=== PATIENT | male | born 1960 | race African-American/Black ===

== ENCOUNTER 2020-10-24 16:46 | Inpatient (IN) | payer BC ==
[~2020-10-24] VITALS: Ht 193 cm; Wt 117.5 kg
--- NOTE | ~2020-10-24 | TEE ---
[facility] [address] [place] [address] TRANSESOPHAGEAL ECHOCARDIOGRAM Name: BRIAN VASQUES JR Room #: 353-P ADM IN M.R.#: [id number] Admission: 10/24/20 Attend Phys: Jessica Mary Discharge: Date of : 60 Report #: [id number] THIS REPORT FOR: cc: FAM - Family physician unknown FAM - Family physician unknown Fazal Plaza MD [facility] ~ APPROVED REPORT Study performed: 10/25/2020 11:07:59 EXAM: Comprehensive 2D, Doppler, and color-flow Echocardiogram Patient Location: Bedside Room #: 353 Status: on-call BSA: 2.31 HR: 125 bpm BP: 99/74 mmHg Rhythm: Tachycardia Other Information Study Quality: Adequate Technically limited study due to inability to position patient/hip pain. Indications Arrhythmia Diabetes Chest Pain HLD 2D Dimensions RVDd: 32.84 mm IVSd: 11.37 (7-11mm) LVOT Diam: 23.28 (18-24mm) LVDd: 50.62 mm PWd: 11.39 (7-11mm) Ascending Ao: 33.27 (22-36mm) LVDs: 43.03 (25-40mm) Aortic Root: 32.29 mm IVC: 24.00 mm Volumes Left Atrial Volume (Systole) Single Plane 4CH: 55.48 mL Single Plane 2CH: 50.73 mL LA ESV Index: 25.00 mL/m2 Aortic Valve [facility] [address] [place] [address] TRANSESOPHAGEAL ECHOCARDIOGRAM Name: BRIAN VASQUES JR Room #: 353-P ADM IN M.R.#: [id number] Admission: 10/24/20 Attend Phys: Jessica Novak Discharge: Date of : 60 Report #: [id number] AoV Peak Akbar.: 0.78 m/s AO Peak Gr.: 2.46 mmHg LVOT Max P.71 mmHg LVOT Max V: 0.82 m/s MICHAEL Vmax: 4.46 cm2 Mitral Valve MV Decel. Time: 109.58 ms MV E Max Akbar.: 0.42 m/s IVRT: 61.51 ms Pulmonary Valve PV Peak Akbar.: 0.56 m/s PV Peak Gr.: 1.25 mmHg Tricuspid Valve RAP Estimate: 15.00 mmHg Left Ventricle The left ventricle is normal size. There is normal LV segmental wall motion. Borderline concentric left ventricular hypertrophy. Left ventricular systolic function is at the lower limits of normal LVEF 50%. Mild diastolic dysfunction Right Ventricle The right ventricle is normal size. Right ventricle is mildly hypokinetic. Atria The left atrium size is normal. The right atrium size is normal. Aortic Valve The aortic valve is normal in structure. No aortic regurgitation is present. There is no aortic valvular stenosis. Mitral Valve The mitral valve is normal in structure. Trace mitral regurgitation. No evidence of mitral valve stenosis. Tricuspid Valve The tricuspid valve is normal in structure. There is no tricuspid valve regurgitation noted. Unable to assess PA pressure. Pulmonic Valve Pulmonic valve is not well visualized. Great Vessels [facility] [address] [place] [address] TRANSESOPHAGEAL ECHOCARDIOGRAM Name: BRIAN VASQUES JR Room #: 353-P ADM IN M.R.#: [id number] Admission: 10/24/20 Attend Phys: Jessica Novak Discharge: Date of : 60 Report #: [id number] The aortic root is normal in size. IVC is mildly dilated at 2.4 cm and collapses <50% with inspiration. Pericardium There is no pericardial effusion. <Conclusion> Left ventricular systolic function is at the lower limits of normal There is normal LV segmental wall motion. LVEF 50%. Mild diastolic dysfunction The aortic valve is normal in structure. No aortic regurgitation or stenosis The mitral valve is normal in structure. Trace mitral regurgitation. Unable to assess pulmonary artery pressure. There is no pericardial effusion. By: 1200 1200 Fazal Plaza MD, FACC /INF
[2020-10-24 16:46] VITALS: BP 135/90
[~2020-10-24 16:46] MED LIST: AMOXICILLIN 50500 MG PO; ANUSOL1 EACH RC; CITRATE OF MAG296 ML PO; COLACE 100 MG100 MG PO; GLIPIZIDE 10 MG10 MG PO; GLUCOPHAGE1000 MG PO; HIGH CHOLESTEROL MED; HYDROCODONE-AP1 EAC6 PO; IBUPROFEN 600600 M1 PO; NYSTATIN15 GM TP
[2020-10-24 17:02] LABS: ABSOLUTE NEUTROPHILS 9.2 thou/uL (1.4-8.2); BASOPHILS 0.3 % (0.0-2.0); EOSINOPHILS 0.7 % (0.0-3.0); HEMATOCRIT 40.7 % (42.0-52.0); HEMOGLOBIN 13.3 gm/dL (14.0-18.0); LYMPHOCYTES 3.5 % (24.0-44.0); MCH 26.8 pg (26.0-34.0); MCHC 32.7 g/dL (28.0-37.0); MCV 81.9 fL (80.0-100.0); MONOCYTES 2.8 % (1.0-8.0); PLATELET COUNT 111 thou/uL (150-400); POLYS 92.7 % (36.0-66.0); RBC 4.97 mil/uL (4.50-6.00); RDW 14.5 % (10.5-14.5); WBC 9.9 thou/uL (4.0-11.0)
[2020-10-24 17:13] LABS: ANION GAP 15 mmol/L (7-16); BUN 24 mg/dL (7-18); CALCIUM 8.4 mg/dL (8.5-10.1); CHLORIDE 92 mmol/L (98-107); CO2 21 mmol/L (21-32); CREATININE 1.6 mg/dL (0.7-1.3); GLUCOSE 431 mg/dL (74-106); POTASSIUM 3.7 mmol/L (3.5-5.1); SODIUM 128 mmol/L (136-145)
[2020-10-24] MEDS ORDERED: TRULICITY1.5 MG/0.5 SUBQ (17:21)
[2020-10-24] MEDS ORDERED: NEURONTIN 400400 M1 PO (17:21)
[2020-10-24] MEDS ORDERED: TRAMADOL 50 MG50 MG PO (17:21)
[2020-10-24 17:27] LABS: ALBUMIN 3.2 g/dL (3.4-5.0); AMYLASE 16 U/L (25-115); DIRECT BILIRUBIN 0.3 mg/dL (<0.1-0.2); LIPASE 42 U/L (73-393); MAGNESIUM 1.7 mg/dL (1.8-2.4); SGOT 41 U/L (15-37); SGPT 33 U/L (30-65); TOTAL BILIRUBIN 0.7 mg/dL (0.2-1.0); TROPONIN-I <0.06 ng/mL (<0.06)
[2020-10-24 19:15] LABS: URINE BILIRUBIN NEGATIVE (Negative); URINE BLOOD 3+ (Negative); URINE CLARITY CLEAR; URINE COLOR YELLOW; URINE GLUCOSE-RANDOM* 3+ (Negative); URINE KETONES 1+ (Negative); URINE LEUKOCYTES-REFLEX NEGATIVE (Negative); URINE NITRITE-REFLEX NEGATIVE (Negative); URINE PROTEIN (DIPSTICK) 2+ (Negative); URINE SPECIFIC GRAVITY 1.025 (1.005-1.035); URINE UROBILINOGEN 0.2 E.U./dl (0.2-1.0)
[2020-10-24 19:25] LABS: COARSE GRANULAR CASTS 4-10 Moderate /LPF (None Seen)
[2020-10-24 19:26] LABS: SQUAMOUS 0-3 Few /LPF (0-3)
[2020-10-24 19:27] LABS: AMORPHOUS URATES Few /LPF (None Seen); BACTERIA-REFLEX 1-9 Few /HPF (None Seen); URINE RBC 0-2 Rare /HPF (0-2); URINE WBC-REFLEX 0-5 Rare /HPF (0-5)
[2020-10-24 21:48] LABS: CALCIUM 7.8 mg/dL (8.5-10.1); CREATININE 1.4 mg/dL (0.7-1.3); POTASSIUM 3.7 mmol/L (3.5-5.1)
[2020-10-24 22:25] VITALS: BP 115/71
--- NOTE | 2020-10-24 22:58 | NUR ---
REBEL CARPENTER HERE TO SEE PATIENT. SHE IS AWARE CARDIZEM X 3 DOSES HAS NOT BEEN EFFECTIVE CONTROLLING HEART RATE. ORDER RECEIVED FOR AMIODARONE DRIP. REPORT GIVEN TO CHRISTIAN CARR ON WHO IS AWARE OF NEW MED ORDER.
[2020-10-24 23:03] VITALS: BP 115/71
[2020-10-25] VITALS (9 sets, daily range): BP systolic 90–129; BP diastolic 50–82
[2020-10-25 01:23] LABS: HEMATOCRIT 37.2 % (42.0-52.0); HEMOGLOBIN 11.8 gm/dL (14.0-18.0); MCH 26.3 pg (26.0-34.0); MCHC 31.6 g/dL (28.0-37.0); MCV 83.3 fL (80.0-100.0); RBC 4.47 mil/uL (4.50-6.00); RDW 14.8 % (10.5-14.5); WBC 5.9 thou/uL (4.0-11.0)
[2020-10-25 02:19] LABS: ANION GAP 11 mmol/L (7-16); BUN 19 mg/dL (7-18); CALCIUM 7.4 mg/dL (8.5-10.1); CHLORIDE 100 mmol/L (98-107); CO2 20 mmol/L (21-32); CREATININE 1.5 mg/dL (0.7-1.3); GLUCOSE 326 mg/dL (74-106); POTASSIUM 3.6 mmol/L (3.5-5.1); SODIUM 131 mmol/L (136-145)
[2020-10-25 02:22] LABS: SERUM ASSESSMENT Clear
[2020-10-25 02:24] LABS: ALBUMIN 2.5 g/dL (3.4-5.0); SGOT 40 U/L (15-37); SGPT 30 U/L (16-63); TOTAL BILIRUBIN 0.8 mg/dL (0.2-1.0); TOTAL PROTEIN 6.2 g/dL (6.4-8.2); TROPONIN-I <0.06 ng/mL (<0.06)
[2020-10-25 02:40] LABS: CHOLESTEROL 154 mg/dL (<200); HDL CHOLESTEROL 35 mg/dL (>40); LDL CHOLESTEROL 98 mg/dL (<100); TC:HDL 4.4 Ratio (Not establshd); TRIGLYCERIDE 105 mg/dL (<150); VLDL 21 mg/dL (<40)
--- NOTE | 2020-10-25 04:18 | NUR ---
MIC FROM LAB CALLED WITH POSITIVE BLOOD CULTURES WITH GRAM+ COCCI.
--- NOTE | 2020-10-25 05:57 | NUR ---
Arrived from ER around 2324 , A fib/flutter RVR with HR in the 140's to 160's. Amiodarone gtt. started and converted to ST with PAC's around 0300. Denies any chest pain but has pain on left shoulder , right hip and right toe. Tramadol given with some relief. Denies any shortness of breath , O2 sat up to 100% in RA. Negative COVID test result called to Claire REID and Nsg Instructor Tap Dancing. Gram positive cocci also called to OPERATIVE SUPERVISOR. Pt. incontinent of bladder upon arival on the floor, provided urinal but stated he can't use it because he spills it. He uses walker at home to go to the bathroom. Agreed to have external cath in place. Bed alarm on for safety , gave verbal consent for falls contract. SCD's in place.
--- NOTE | 2020-10-25 11:17 | EKG ---
[address] [place] [address] ELECTROCARDIOGRAM REPORT Name: BRIAN VASQUES JR Room #: 353-P ADM IN M.R.#: [id number] Admission: 10/24/20 Attend Phys: Bhargav Spears MD Discharge: Date of : 60 Report #: [id number] [facility] ED Test Date: 2020-10-24 Test Time: 16:41:51 Pat Name: BRIAN VASQUES Department: Room: [facility] Gender: M Senior Procurement Manager: ADILSON : 1960 Requested By: Angel Escalante Order Number: [id number] MD: Fazal Plaza Measurements Intervals [place] Rate: 147 P: 60 TN: 154 QRS: 61 QRSD: 93 T: 77 QT: 276 QTc: 432 Interpretive Statements Sinus tachycardia Low voltage, extremity leads No previous ECG available for comparison Electronically Signed On 10-25-2020 11:17:25 VALUE ENGINEER by Fazal Plaza [email or web address] <ELECTRONICALLY SIGNED> By: Fazal Plaza MD, [facility] 10/25/20 1117 1641 1641 Fazal Plaza MD, FACC /EPI
--- NOTE | 2020-10-25 11:21 | EKG ---
[place] [address] [facility] [employer] [place] [address] ELECTROCARDIOGRAM REPORT Name: BRIAN VASQUES JR Room #: 353-P ADM IN M.R.#: [id number] Admission: 10/24/20 Attend Phys: Bhargav Spears MD Discharge: Date of : 60 Report #: [id number] [facility] ED Test Date: 2020-10-24 Test Time: 21:20:46 Pat Name: BRIAN VASQUES Department: Room: [facility] Gender: M Tassel Maker: ISIDRO : 1960 Requested By: Mykel Nickerson Order Number: [id number] MD: Fazal Plaza Measurements Intervals [place] Rate: 145 P: [place]: QRS: -31 QRSD: 87 T: 59 QT: 294 QTc: 457 Interpretive Statements Atrial flutter with predominant 2:1 AV block Left axis deviation Borderline low voltage, extremity leads Compared to ECG 10/24/2020 16:41:51 Atrial flutter has replaced sinus tachycardia Electronically Signed On 10-25-2020 11:20:56 PRODUCTION MAINTENANCE MECHANIC by Fazal Plaza [email or web address] <ELECTRONICALLY SIGNED> By: Fazla Plaza MD, [facility] 10/25/20 1120 19 19 Fazal Plaza MD, [facility] /EPI
--- NOTE | 2020-10-25 11:32 | EKG ---
[address] [place] [address] ELECTROCARDIOGRAM REPORT Name: BRIAN VASQUES JR Room #: 353-P ADM IN M.R.#: [id number] Admission: 10/24/20 Attend Phys: Bhargav Spears MD Discharge: Date of : 60 Report #: [id number] [facility] Test Date: 2020-10-25 Test Time: 07:56:29 Pat Name: BRIAN VASQUES Department: Room: 353 P Gender: M Programmer Analyst Consultant: MARIA ESTHER : 1960 Requested By: Lisa Wise Order Number: [id number] MD: Fazal Plaza Measurements Intervals [place] Rate: 122 P: 67 IA: 144 QRS: 10 QRSD: 93 T: 56 QT: 321 QTc: 458 Interpretive Statements Sinus tachycardia Atrial premature complexes Borderline low voltage, extremity leads Compared to ECG 10/24/2020 21:20:46 Atrial flutter no longer present Electronically Signed On 10-25-2020 11:31:55 ADJUSTER PIANO [employer] by Fazal Plaza [email or web address] <ELECTRONICALLY SIGNED> By: Fazal Plaza MD, [facility] 10/25/20 1131 0756 0756 Fazal Plaza MD, FAC /EPI
[2020-10-26] VITALS (11 sets, daily range): BP systolic 107–1103; BP diastolic 66–93
[2020-10-26 05:36] LABS: GLYCOHEMOGLOBIN (HGB A1C) 8.7 % (4.8-5.6)
[2020-10-26 05:55] LABS: ALBUMIN 2.2 g/dL (3.4-5.0); CALCIUM 7.8 mg/dL (8.5-10.1); CREATININE 2.3 mg/dL (0.7-1.3); PHOSPHORUS 3.1 mg/dL (2.5-4.9); POTASSIUM 3.8 mmol/L (3.5-5.1)
--- NOTE | 2020-10-26 06:16 | HC ---
[facility] [place] [address] CONSULTATION Name: BRIAN VASQUES JR Room #: 353-P ADM IN M.R.#: [id number] Admission: 10/24/20 Attend Phys: Bhagrav Spears MD Discharge: Date of : 60 Report #: [id number] THIS REPORT FOR: cc: FAM - Family physician unknown FAM - Family physician unknown Paxton Thibodeaux MD ~ DATE OF SERVICE: 10/25/2020 INFECTIOUS DISEASE CONSULTATION ATTENDING PHYSICIAN: Dr. Spears. REASON FOR EVALUATION: Streptococcal septicemia, likely right foot source. HISTORY OF SUBJECTIVE: Chart reviewed, patient examined. This is a 60-year-old gentleman with a fairly extensive medical history, has diabetes mellitus type 2 complicated by peripheral neuropathy, presented with chest pain. He describes a left-sided kind of involving the upper portion of the shoulder, perhaps the neck as well, rated quite high in terms of intensity. Overall, that has resolved, has a more focal area that is reproducible with palpation. At the time of presentation, he was febrile to as high as 103 last p.m. At the time of admission, blood cultures were collected, now with growth of gram-positive cocci, consistent with strep in 2/2. Additional evaluation noted chest x-ray that was unremarkable. Did have marked inflammatory marker elevation including CRP of 316. Sed rate of 98, also had a procalcitonin of 71.2. Lactic acid 3.0. Did complain of right great toe pain involving the first metatarsophalangeal site as well. He is generally lucid. He denies significant oral related pain or discomfort. He has dentures. No GI related complaints either. He is empirically started on therapy with vancomycin and Zosyn. ALLERGIES: None known. MEDICATIONS: As noted above include enoxaparin, famotidine, aspirin, vancomycin, amiodarone, Zosyn, tramadol, p.r.n. analgesics and antiemetics. PAST MEDICAL HISTORY: Diabetes mellitus complicated by peripheral neuropathy, hyperlipidemia, previous hip surgery. SOCIAL HISTORY: Nonsmoker, no ethanol. FAMILY HISTORY: Noncontributory. REVIEW OF SYSTEMS: Otherwise, unremarkable. PHYSICAL EXAMINATION: [facility] [address] [place] [address] CONSULTATION Name: BRIAN VASQUES JR Room #: 353-P [facility] IN .R.#: [id number] Admission: 10/24/20 Attend Phys: Bhargav Spears MD Discharge: Date of : 60 Report #: [id number] GENERAL: He appears somewhat chronically ill and undernourished. He is pleasant, in [id number]-ch-[id number] distress. VITAL SIGNS: Temperature 98.7, pulse is still 116, had been up in the 140s to 150s, respirations 16, blood pressure is 99/74. SKIN: Warm, dry, no rashes. HEENT: Otherwise, unremarkable. NECK: Supple. Normocephalic. Extraocular muscles intact. LUNGS: Diminished breath sounds. I do not appreciate any crackles or wheezes. HEART: Regular without evidence of a murmur. ABDOMEN: Soft, nontender. EXTREMITIES: Distal right lower extremity has a hemorrhagic type bullous lesion over the medial aspect of the first MTP is quite exclusively tender. GENITOURINARY AND RECTAL: Deferred. LABORATORY DATA: Lactic acid now down to 2.9, glucose of 271. Blood cultures 2 out 2 with growth of streptococcal species. Sodium 131, potassium 3.6, chloride 100, bicarbonate is 20, anion gap of 11, BUN and creatinine 19 and 1.5, glucose of 326, AST of 40, ALT of 30. Albumin 2.5, total protein 6.2. Coronavirus testing x2 was negative thus far. Sed rate of 98. ASSESSMENT: Streptococcal septicemia, suspect source is the right great toe. I think this is significant. No plain films were unrevealing, I think surgery should evaluate and possible debridement. We will adjust antimicrobial therapy including Unasyn and clindamycin. We have to monitor expectantly, certainly at risk for additional deterioration clinically and further complications. <ELECTRONICALLY SIGNED> By: Paxton Thibodeaux MD 10/26/20 0616 0909 0935 Paxton Thibodeaux MD /nt
--- NOTE | 2020-10-26 07:30 | NUR ---
Afib RVR with HR in the 140's to 170's at shift change.Amiodarone gtt. and cardizem gtt. infusing. Pt. given amiodarone bolus x2 doses and converted to ST after the 2nd amiodarone bolus. He maintained ST all night long with HR in the upper 100's to 110's.Tylenol given for elevated temp.Complete bed bath given.Tolerating room air well with O2 sat in the upper 90's to 100%. No respiratory distress. Pt. assisted to reposition for comfort.Incontinent of large soft bm. External cath in place. Bed alarm on.
[2020-10-26 08:56] LABS: HEMATOCRIT 34.8 % (42.0-52.0); HEMOGLOBIN 11.3 gm/dL (14.0-18.0); MCHC 32.6 g/dL (28.0-37.0); MCV 82.8 fL (80.0-100.0); RBC 4.21 mil/uL (4.50-6.00); RDW 14.7 % (10.5-14.5); WBC 10.4 thou/uL (4.0-11.0)
[2020-10-26 11:19] LABS: ABSOLUTE NEUTROPHILS 9.6 thou/uL (1.4-8.2)
[2020-10-26 11:20] LABS: PLATELET COUNT 93 thou/uL (150-400)
[2020-10-26 11:21] LABS: ANISOCYTOSIS 1+
--- NOTE | 2020-10-26 20:03 | NUR ---
CONT ON CARDIZEM AND AMIO DRIPS. HR HAS RESTED IN 100-110 RANGE THROUGH THE DAY. HE DID HAVE A FEVER AND ALSO PAIN. PRN MEDS ADMINISTERED ACCORDINGLY. FAMILY UPDATED.
[2020-10-27] VITALS (8 sets, daily range): BP systolic 128–159; BP diastolic 77–92
--- NOTE | 2020-10-27 00:22 | NUR ---
PT ALERT AND ORIENTED X4. T 1O2.1 EARLIER AT CHANGE OF SHIFT. HR 133. AFIB TITRATED CARDIZEM GTT TO 20 THEN DOWN TO 18. HR 103 -115 . BP WNL> 100. AMIODARONE GTT ON ORDERED. TYLENOL GIVEN PER DAY SHIFT 17:40. PT IS AFEBRILE PRESENTLY. SATS 95-98% ON RA. SWELLING TO ANKLES IS GONE. EDEMA TO RIGHT FOOT IS LESS THAN 1+. NO C/O PAIN. ATTEMPTED TO CLARIFY SECOND CT OF PELVIS ORDERED WITH ORTHOPEDIC PLATING AND POINT ASSEMBLY SUPERVISOR. ANSWERING SERVICE DID NOT ANSWER CALL AFTER SEVERAL MINUTES OF WAITING ON LINE. NOTIFIED Claire CARPENTER NP . WILL CLARIFY IN AM WHETHER A SECOND CT OF RIGHT HIP IS NEEDED TO VISUALIZE TIP OF HIP REPLACEMENT PART OR IF MRI IS ADEQUATE TOMMORROW PER REQUEST OF RADIOLOGY. WILL CONTINUE TO MONITOR PT FOR CHANGES.
--- NOTE | 2020-10-27 11:35 | NUR ---
0930 MRI CALLED BACK AND STATED THEY SPOKE TO DR. SCHWARZ AND ORTHO DOCTOR AND THEY CARE OKAY WIH PT HAVING MRI TOMORROW.CALLED MRI BACK AND UPDATED THEM ABOUT CARDIOLOGY BEING OKAY WITH PT COMING OF DRIP TO GO DOWN FOR MRI. CALLED MRI BACK, THEY STATED THEY ALL BOKKED THE WHOLE DAY AND WILL LET ME KNOW IF THERE IS ANY OPENING. PT HAS BEEN SCHEDULED FOR TOMORROW. PT UPDATED ABOUT IT. PT CALLED AND UODATED ABOUT PT CARE
[2020-10-27 11:40] LABS: HEMATOCRIT 35.8 % (42.0-52.0); HEMOGLOBIN 11.6 gm/dL (14.0-18.0); MCH 26.4 pg (26.0-34.0); MCHC 32.3 g/dL (28.0-37.0); MCV 81.7 fL (80.0-100.0); PLATELET COUNT 106 thou/uL (150-400); RBC 4.38 mil/uL (4.50-6.00); RDW 15.3 % (10.5-14.5); WBC 10.2 thou/uL (4.0-11.0)
[2020-10-27 12:03] LABS: CALCIUM 8.2 mg/dL (8.5-10.1); CREATININE 2.3 mg/dL (0.7-1.3); POTASSIUM 3.7 mmol/L (3.5-5.1); TOTAL BILIRUBIN 0.5 mg/dL (0.2-1.0); TOTAL PROTEIN 6.3 g/dL (6.4-8.2)
[2020-10-27 13:11] LABS: ABSOLUTE NEUTROPHILS 8.9 thou/uL (1.4-8.2); TARGET CELLS FEW
[2020-10-27 13:12] LABS: OVALOCYTES OCCASIONAL; POLYCHROMASIA 1+; SCHISTOCYTES OCCASIONAL
--- NOTE | 2020-10-27 13:30 | NUR ---
ASSESSMENT: CM REVIEWED CHART. PATIENT WAS ADMITTED DUE TO CHEST PAIN AND RIGHT FOOT PAIN. PT WAS FOUND TO BE IN AFIB/FLUTTER AND NOW ON AMIODARONE GTT. PT WAS ALSO RUNNING FEVERS. ID IS CONSULTED AND PT IS ON IV ANBX. CM ATTEMPTED TO REACH PATIENT IN ROOM BUT NO ANSWER. CM REACHED OUT TO PATIENTS . SHE REPORTS THEY LIVE IN A SENIOR COMMUNITY APT AND THEY LIVE ON THE FIRST LEVEL AND HAVE NO STEPS. REPORTS THAT PATIENT HAS A ROLLATER WALKER AT HOME TO ASSIST WITH AMBULATION. REPORTS THAT PATIENT HAS HAD HH IN THE PAST AFTER A SURGERY ABOUT A YEAR OR SO AGO BUT UNSURE WHAT AGENCY. SHE REPORTS PATIENT HAS NOT BEEN TO A SNF. PHYSICAL THERAPY IS ORDERED FOR PATIENT AND CURRENTLY THEY HAVE BEEN UNABLE TO WORK WITH HIM YET. MRI OF PATIENTS FOOT IS ORDERED. CM WILL CONTINUE TO FOLLOW TO ASSIST NEEDED.
--- NOTE | 2020-10-27 14:58 | EKG ---
[place] [address] [facility] [employer] [place] [address] ELECTROCARDIOGRAM REPORT Name: LAYOBRIAN ENRIQUEZ JR Room #: 353-P ADM IN M.R.#: [id number] Admission: 10/24/20 Attend Phys: Jessica Mary Discharge: Date of : 60 Report #: [id number] [facility] Test Date: 2020-10-27 Test Time: 07:54:42 Pat Name: BRIAN VASQUES Department: Room: 353 P Gender: M Roll Changer: DOUGLAS : 1960 Requested By: Fazal Plaza Order Number: [id number] MD: Rajesh Tripp Measurements Intervals [place] Rate: 99 P: 49 OR: 169 QRS: 4 QRSD: 110 T: 40 QT: 384 QTc: 493 Interpretive Statements Sinus rhythm Low voltage, extremity leads Abnormal R-wave progression, early transition Minimal ST elevation, anterior leads Borderline prolonged QT interval Compared to ECG 10/25/2020 07:56:29 Electronically Signed On 10-27-2020 14:58:14 CDT by Rajesh Tripp [email or web address] <ELECTRONICALLY SIGNED> By: Rajesh Tripp MD 10/27/20 1458 0754 0754 Rajesh Tripp MD /EPI
--- NOTE | 2020-10-27 23:21 | NUR ---
PT ALERT AND ORIENTED X4. VSS. T 100.8. PERIODS OF ANXIETY AND IRRITABILITY NOTED. ATTEMPTING TO GET PT STRONGER PAIN MEDS. AWAITING RESPONSE FROM TELEVISION ANCHOR. HE REFUSED TRAMADOL. HE SAYS IT DOESNT WORK. IVFS INFUSING. AMIODARONE ON. ABX GIVEN ORDERED. PEDAL PULSES ARE FAINT. PULSE CLEARLY AUDIBLE WITH DOPPLER TO IZABELLA PEDAL PULSES. EDEMA NOTED 1+ TO RIGHT FOOT/ ANKLE AREA. CALL LIGHT IN REACH. BED ALRM ON.
--- NOTE | 2020-10-28 00:56 | NUR ---
SPOKE WITH NURSE PRACTIONER AND INFORMED HER PT IS C/O PAIN TO LEFT SHOULDER X3-4 DAYS WHICH HE STATES IS NOT RELIEVED BY PILLS. TORADOL X1 GIVEN IV. REFAXED MRI ANCA HU. PT DOES HAVE HX RENAL INSUFFICIENCY . ADDED THIS TO ANCA. STARTED PT ON IV NS AT 100/HR ORDERED. HR 103. TEMP DOWN TO 99.2 AFTER TYLENOL.
[2020-10-28 03:00] VITALS: BP 145/89
[2020-10-28 05:41] LABS: HEMATOCRIT 35.9 % (42.0-52.0); HEMOGLOBIN 11.5 gm/dL (14.0-18.0); MCH 26.3 pg (26.0-34.0); MCHC 32.1 g/dL (28.0-37.0); MCV 81.8 fL (80.0-100.0); RBC 4.39 mil/uL (4.50-6.00); RDW 15.1 % (10.5-14.5); WBC 9.8 thou/uL (4.0-11.0)
[2020-10-28 05:51] LABS: CALCIUM 7.9 mg/dL (8.5-10.1); CREATININE 2.1 mg/dL (0.7-1.3); MAGNESIUM 2.4 mg/dL (1.8-2.4); POTASSIUM 3.8 mmol/L (3.5-5.1)
--- NOTE | 2020-10-28 06:03 | NUR ---
PT PRESENTLY RESTING QUIETLY. NO C/O PAIN . IV ABX HUN ORDERED. REFUSED JASON CARE. HE WOULD NOT LET ME TURN THS AM. TEMP DOWN TO 98. HR 98. SATS 94-98%. AMIODARONE DRIP INFUSING AND NS AT 100 ML/HR.
--- NOTE | 2020-10-28 07:34 | NUR ---
LATE ENTRY FOR 10/27/20 APPROXIMATELY 07:15 AM. I NOTIFED ORTHOPEDIC DR DIMENSION QUARRY SUPERVISOR THAT ORTHO CHARLEEN ORDERED CT OF PELVIS AND RADIOLOGY HAD ASKED ME ON LANOLIN PLANT OPERATOR TO HAVE SECOND CT OF PELVIS TO BE CHANGED TO RIGHT HIP CT IN ORDER TO VISUALIZE LOWER PART OF THR HARDWARE. ORTHO DIMENSION QUARRY SUPERVISOR STATED SHE WOULD TELL CHARLEEN DOTY TO REORDER CT OF RIGHT HIP INSTEAD OF CT OF PELVIS IF NEEDED OTHERWISE THERE IS A CT OF ABD AND PELVIS COMPLETED WHICH DID SHOW PART OF RIGHT HIP. INFORMED DAY SHIFT NS THAT SECOND CT WAS NOT CLARIFIED BY PA AND WAS STILL UNDONE.
[2020-10-28 07:49] VITALS: BP 143/87
--- NOTE | 2020-10-28 07:49 | NUR ---
CLARIFICATION FOR LATE ENTRY NOTE ABOVE PA WAS RAMANDEEP PARKER NOT SOREN.
[2020-10-28 11:07] VITALS: BP 147/91
--- NOTE | 2020-10-28 14:46 | 2DMMODE ---
[facility] [place] [address] 2 D/M-MODE ECHOCARDIOGRAM Name: BRIAN VASQUES JR Room #: 353-P ADM IN M.R.#: [id number] Admission: 10/24/20 Attend Phys: Jessica Mary Discharge: Date of : 60 Report #: [id number] THIS REPORT FOR: cc: FAM - Family physician unknown FAM - Family physician unknown Fazal Plaza MD [facility] Rebel Wise ~ Sex/Age : M/60Y Height/Weight : 188.0cm/104.3kg Patient Name : BRIAN VASQUES Study Date : 2020-10-25 BSA : 2.31? Requesting Name : ECHO STANDARD W/O CONTRAST Date of : 1960 Request Doctor : REBEL WISE Department : CARD --< Approved Report > Study performed: 10/25/2020 11:07:59 EXAM: Comprehensive 2D, Doppler, and color-flow Echocardiogram Patient Location: Bedside Room #: 353 Status: on-call BSA: 2.31 HR: 125 bpm BP: 99/74 mmHg Rhythm: Tachycardia Other Information Study Quality: Adequate Technically limited study due to inability to position patient/hip pain. Indications Arrhythmia Diabetes Chest Pain HLD 2D Dimensions RVDd: 32.84 mm IVSd: 11.37 (7~11mm) LVOT Diam: 23.28 (18~24mm) LVDd: 50.62 mm PWd: 11.39 (7~11mm) Ascending Ao: 33.27 (22~36mm) LVDs: 43.03 (25~40mm) [facility] [address] [place] [address] 2 D/M-MODE ECHOCARDIOGRAM Name: BRIAN VASQUES JR Room #: 353-P [facility] IN ..#: [id number] Admission: 10/24/20 Attend Phys: Jessica Harris Oct Discharge: Date of : 60 Report #: [id number] Aortic Root: 32.29 mm IVC: 24.00 mm Volumes Left Atrial Volume (Systole) Single Plane 4CH: 55.48 mL Single Plane 2CH: 50.73 mL LA ESV Index: 25.00 mL/m2 Aortic Valve AoV Peak Akbar.: 0.78 m/s AO Peak Gr.: 2.46 mmHg LVOT Max P.71 mmHg LVOT Max V: 0.82 m/s MICHAEL Vmax: 4.46 cm2 Mitral Valve MV Decel. Time: 109.58 ms MV E Max Akbar.: 0.42 m/s IVRT: 61.51 ms Pulmonary Valve PV Peak Akbar.: 0.56 m/s PV Peak Gr.: 1.25 mmHg Tricuspid Valve RAP Estimate: 15.00 mmHg Left Ventricle The left ventricle is normal size. There is normal LV segmental wall motion. Borderline concentric left ventricular hypertrophy. Left ventricular systolic function is at the lower limits of normal LVEF 50%. Mild diastolic dysfunction Right Ventricle The right ventricle is normal size. Right ventricle is mildly hypokinetic. Atria The left atrium size is normal. The right atrium size is normal. Aortic Valve The aortic valve is normal in structure. No aortic regurgitation is present. There is no aortic valvular stenosis. Mitral Valve The mitral valve is normal in structure. Trace mitral regurgitation. No evidence of mitral valve stenosis. Tricuspid Valve The tricuspid valve is normal in structure. There is no tricuspid valve regurgitation noted. Unable to assess PA pressure. [facility] [address] [place] [address] 2 D/M-MODE ECHOCARDIOGRAM Name: BRIAN VASQUES JR Room #: 353-P ADM IN M.R.#: [id number] Admission: 10/24/20 Attend Phys: Jessica Novak Discharge: Date of : 60 Report #: [id number] Pulmonic Valve Pulmonic valve is not well visualized. Great Vessels The aortic root is normal in size. IVC is mildly dilated at 2.4 cm and collapses <50% with inspiration. Pericardium There is no pericardial effusion. <Conclusion> Left ventricular systolic function is at the lower limits of normal There is normal LV segmental wall motion. LVEF 50%. Mild diastolic dysfunction The aortic valve is normal in structure. No aortic regurgitation or stenosis The mitral valve is normal in structure. Trace mitral regurgitation. Unable to assess pulmonary artery pressure. There is no pericardial effusion. Electronically Approved : 10/28/2020 14:45:00 By: 1200 1445 Fazal Plaza MD, FACC /
--- NOTE | 2020-10-28 15:18 | NUR ---
SW reviewed chart and spoke with nursing and attending physician. Pt is on IV abx. Pt had MRI of his foot this morning. [facility] consulted and has accepted pt from a clinical standpoint. Will need insurance authorization. SW updated attending physician. LANE is following to assist as needed with discharge planning.
[2020-10-28 16:11] VITALS: BP 151/87
[2020-10-28 20:11] VITALS: BP 183/111
[2020-10-28 20:48] VITALS: BP 152/85
[2020-10-29 04:05] VITALS: BP 150/95
--- NOTE | 2020-10-29 04:32 | NUR ---
Pt. given ultram for left shoulder pain with some relief. He requested bengay stating it help more than the pill. Dr. Mcgee notified and order received. He finally went to sleep after that. Repositioned for comfort. Tylenol given to help decrease temp. Elevated BP at HS per COLLECTION SUPERVISOR 183/111 , rechecked and got 152/85. Temp in room also set at 85 degrees with door closed at HS and temp recorded 101.6. Decrease temp in room and door opened. Rechecked temp and got 99.5. This am temp of 100.5 , tylenol given. ST per tele .Bed alarm on. External cath in place. Making progress towards care plan goal.
[2020-10-29 05:49] LABS: HEMATOCRIT 35.6 % (42.0-52.0); HEMOGLOBIN 11.6 gm/dL (14.0-18.0); MCH 26.2 pg (26.0-34.0); MCHC 32.5 g/dL (28.0-37.0); MCV 80.6 fL (80.0-100.0); RBC 4.41 mil/uL (4.50-6.00); RDW 14.9 % (10.5-14.5); WBC 12.1 thou/uL (4.0-11.0)
[2020-10-29 06:41] LABS: CALCIUM 7.9 mg/dL (8.5-10.1); CREATININE 1.6 mg/dL (0.7-1.3); POTASSIUM 3.6 mmol/L (3.5-5.1)
[2020-10-29 12:16] VITALS: BP 144/93
--- NOTE | 2020-10-29 14:55 | NUR ---
LANE reviewed chart and spoke with nursing and attending physician. Pt is progressing towards goals for discharge. Discharge home is anticipated soon. [facility] has accepted pt. Pt does not want to go to [facility]. Pt wants to go home. SW met with pt at bedside to discuss discharge plan. Pt is agreeable with HH referral. Options provided for HH. No preference voiced. LANE faxed referral to Patricia for review. LANE is following to assist as needed with discharge planning.
[2020-10-29 17:08] VITALS: BP 164/92
--- NOTE | 2020-10-29 18:26 | NUR ---
CARE TAKEN THIS AM, PT DENIES ANY NAUSEA AND VOMITTING. PT STATED HE IS READY TO GO. ANTICIPATING FOR D/C SOON. PT IN THE ROOM VISITING.
[2020-10-29 19:17] VITALS: BP 168/103
[2020-10-29 20:15] VITALS: BP 181/91
[2020-10-29 20:22] LABS: URINE BILIRUBIN NEGATIVE (Negative); URINE BLOOD 2+ (Negative); URINE CLARITY CLEAR; URINE COLOR YELLOW; URINE GLUCOSE-RANDOM* 1+ (Negative); URINE KETONES TRACE (Negative); URINE LEUKOCYTES-REFLEX NEGATIVE (Negative); URINE NITRITE-REFLEX NEGATIVE (Negative); URINE PROTEIN (DIPSTICK) 1+ (Negative); URINE SPECIFIC GRAVITY 1.025 (1.005-1.035)
[2020-10-29 20:32] LABS: MUCUS 4-6 Moderate strn/LPF (None Seen); SQUAMOUS 0-3 Few /LPF (0-3); URINE WBC-REFLEX 6-15 Few /HPF (0-5)
[2020-10-29 20:33] LABS: URINE RBC 3-10 Few /HPF (0-2)
[2020-10-29 20:34] LABS: BACTERIA-REFLEX 1-9 Few /HPF (None Seen); COARSE GRANULAR CASTS 0-3 Few /LPF (None Seen); CRYSTALS None Seen /LPF (None Seen)
--- NOTE | 2020-10-30 03:24 | NUR ---
Slept better last night. Assisted to reposition for comfort. Bengay to left shoulder per pt. request with good relief. SR-ST (low 100's) per tele. Tylenol given for pain and low grade temp. External cah in place. Making progress towards care plan goals.
[2020-10-30 04:28] VITALS: BP 178/105
[2020-10-30 04:50] VITALS: BP 170/100
[2020-10-30 05:55] LABS: HEMATOCRIT 33.4 % (42.0-52.0); MCH 26.5 pg (26.0-34.0); MCHC 32.8 g/dL (28.0-37.0); MCV 80.7 fL (80.0-100.0); RBC 4.14 mil/uL (4.50-6.00); RDW 15.1 % (10.5-14.5); WBC 14.7 thou/uL (4.0-11.0)
[2020-10-30 06:06] LABS: CALCIUM 7.7 mg/dL (8.5-10.1); CREATININE 1.5 mg/dL (0.7-1.3); MAGNESIUM 1.9 mg/dL (1.8-2.4); POTASSIUM 3.4 mmol/L (3.5-5.1)
--- NOTE | 2020-10-30 06:10 | NUR ---
Elevated BP reported to Dr. Mcgee. BP meds given jimmy per order.
[2020-10-30 08:33] VITALS: BP 162/98
[2020-10-30] MEDS ORDERED: CARDIZEM CD240 M1 PO (09:11)
[2020-10-30] MEDS ORDERED: BENICAR40 MG PO (09:11)
[2020-10-30] MEDS ORDERED: BAYER CHEWABLE81 MG PO (09:11)
[2020-10-30] MEDS ORDERED: PACERONE 200 M200 M1 PO (09:15)
[2020-10-30 12:39] VITALS: BP 152/85
--- NOTE | 2020-10-30 13:55 | NUR ---
CARE ASSUMED AT 0700, PT ALERT AND ORIENTED X4, DENIES ANY NAUSEA, VOMITTING. CONTINUES TO BE ON ROOM AIR, NO SIGNS OF DISTRESS NOTED. EXTERNAL CATHETER IN PLACE. PT CONTINUES TO HAVE FEVER, DR. JACOBS MADE AWARE. PT A LITTLE FRUSTRATED ABOUT NOT BEING ABLE TO GO HOME TODAY BUT UNDERSTANDS THE REASON. DENIES ANY NEEDS AT THE MOMENT. FALL PRECAUTIONS IN PLACE. WILL CONTINUE TO MONITOR.
[2020-10-30 15:31] VITALS: BP 167/91
--- NOTE | 2020-10-30 15:36 | NUR ---
SW reviewed chart and spoke with nursing and attending physician. Pt remains febrile and on IV abx[facility]. LANE met with pt at bedside to discuss discharge plan. Pt states that he is hoping to discharge home tomorrow. 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 Pt is an elementary calculus teacher. Pt tearful when stating that the students started back to school on Tuesday, 10/27 and this is the first day of school in 37 years that he has missed. Plan is for pt to discharge home when medically stable. Pt's PCP is Dr. Roderick Bravo. SW is following to assist as needed with discharge planning.
[2020-10-30 20:30] VITALS: BP 157/94
[2020-10-31 03:53] VITALS: BP 171/102
[2020-10-31 05:34] LABS: HEMATOCRIT 32.3 % (42.0-52.0); HEMOGLOBIN 10.4 gm/dL (14.0-18.0); MCH 26.3 pg (26.0-34.0); MCHC 32.2 g/dL (28.0-37.0); MCV 81.8 fL (80.0-100.0); RBC 3.95 mil/uL (4.50-6.00); RDW 15.1 % (10.5-14.5); WBC 13.4 thou/uL (4.0-11.0)
[2020-10-31 05:45] LABS: CALCIUM 7.9 mg/dL (8.5-10.1); CREATININE 1.3 mg/dL (0.7-1.3); MAGNESIUM 1.9 mg/dL (1.8-2.4); POTASSIUM 3.4 mmol/L (3.5-5.1)
--- NOTE | 2020-10-31 06:06 | NUR ---
Medicated for pain with some relief. Max temp 100.5 (oral) at HS , tylenol given and this am temp 99.0 . He slept fair during the night. PROCUREMENT ACCOUNTANT notified of elevated BP this am , hydralazine prn given. He has been repositioned for comfort. Incont. of med bm this am. Ext. cath in place.
[2020-10-31 07:52] VITALS: BP 164/92
[2020-10-31] MEDS ORDERED: AUGMENTIN 875-1 EACH PO (14:25)
[2020-10-31] MEDS ORDERED: SPIRONOLACTONE25 M1 PO ×2 (14:28→14:39)
[2020-10-31 15:08] VITALS: BP 164/92
--- NOTE | 2020-10-31 15:15 | NUR ---
DISCHARGE NOTE: SW reviewed chart and spoke with nursing and attending physician. Discharge orders written for pt to be discharged home today. No orders written for HH. Pt's family to provide transportation home. SW updated intake at [facility]. No additional SW needs identified at this time, but is available to assist should needs arise.
--- NOTE | 2020-10-31 15:54 | NUR ---
assumed care of pt at 0700. pt alert and oreinted, in no acute distress, adamant on wanting to leave. low grade temp overnight. afebrile today. ok for discharge per physician. discharge education provided.
== END 2020-10-31 17:50 | disposition home health service (06) | DRG 871 ==
LOC: ER 16:46 → 3W 22:12 → EROBS 22:12 → 3W 23:13
PROVIDERS: Emergency Medicine; Internal Medicine; Nurse Practitioner Family; Specialist; ADMIT Hospitalist; ATTEND Hospitalist
DX: A40.8 Other streptococcal sepsis (principal); N17.0 Acute kidney failure with tubular necrosis; L03.115 Cellulitis of right lower limb; I48.92 Unspecified atrial flutter; I48.20 Chronic atrial fibrillation, unspecified; G93.40 Encephalopathy, unspecified; E46 Unspecified protein-calorie malnutrition; E78.5 Hyperlipidemia, unspecified; E86.0 Dehydration; E11.65 Type 2 diabetes mellitus with hyperglycemia; S91.101A Unspecified open wound of right great toe without damage to nail, initial encounter; E11.22 Type 2 diabetes mellitus with diabetic chronic kidney disease; E11.42 Type 2 diabetes mellitus with diabetic polyneuropathy; X58.XXXA Exposure to other specified factors, initial encounter; I95.9 Hypotension, unspecified; N18.9 Chronic kidney disease, unspecified; M19.90 Unspecified osteoarthritis, unspecified site; M25.512 Pain in left shoulder; I12.9 Hypertensive chronic kidney disease with stage 1 through stage 4 chronic kidney disease, or unspecified chronic kidney disease; Z96.641 Presence of right artificial hip joint; Z20.822 Contact with and (suspected) exposure to COVID-19; Y93.89 Activity, other specified; Y92.89 Other specified places as the place of occurrence of the external cause; Y99.8 Other external cause status; Z79.899 Other long term (current) drug therapy; Z79.84 Long term (current) use of oral hypoglycemic drugs; Z68.31 Body mass index [BMI] 31.0-31.9, adult
CPT/HCPCS: 10879